=== PATIENT | female | born 1940 | race Caucasian/White ===

== ENCOUNTER 2019-10-14 21:50 | Emergency (ER) | payer MEDICARE, BC ==
[~2019-10-14 21:50] MED LIST: ALLEGRA60 M1 PO; ARIMIDEX1 MG PO; ASCRIPTIN325 MG OR; BACTROBAN2 % EX; COUMADIN2.5 MG PO; COUMADIN5 MG PO; DIAZEPAM5 M1 PO; FAMVIR500 MG PO; FLEXERIL PO; LASIX 20 MG TAB20 MG PO; LORTAB 5/3255 MG PO; METFORMIN500 MG PO; METO100T50 PO; METO25TAB PO; METO50TA52 PO; NEXIUM20 M1 OR; PROZAC20 MG OR; ROCEPHIN 1 GM1 GM IM; SOTALOL HCL80 MG PO; VITAMIN C500 M4 PO; VITAMIN D1000 UNIT PO; WARFARIN2.5 MG PO; WARFARIN5 MG PO
[2019-10-14] MEDS ORDERED: LANTUS100 UNIT/M SC (22:42)
[2019-10-14] MEDS ORDERED: B-12500 MCG SL (22:43)
[2019-10-14] MEDS ORDERED: HM IRON65 MG PO (22:45)
[2019-10-14] MEDS ORDERED: FOLIC ACID1 MG PO (22:46)
[2019-10-14] MEDS ORDERED: MUCINEX1200 MG PO (22:46)
[2019-10-14] MEDS ORDERED: PRESERVISION PO (22:47)
[2019-10-14 22:49] LABS: IMMATURE GRANULOCYTES 0.8 % (0.0-5.0); MEAN CORPUSCULAR HGB 31.9 pG CALC (26.0-32.0); MEAN CORPUSCULAR HGB CONC 30.8 g/dL CAL (32.0-36.0); NEUT# 6.75 thou/uL (2.00-7.15); RED BLOOD COUNT 2.57 mill/uL (4.20-5.60); RED CELL DISTRI WIDTH 21.2 % (11.5-15.5)
[2019-10-14 22:59] LABS: HEMATOCRIT 26.6 % (37.0-47.0); HEMOGLOBIN 8.2 g/dl (12.0-16.0); MEAN CELL VOLUME 103.5 fL CALC (80.0-100.0)
[2019-10-14 23:01] LABS: ALKALINE PHOSPHATASE 76 u/l (38-126); BUN 24 mg/dL (8-23); BUN/CREATININE RATIO 23 (12-20 (CALC)); CARBON DIOXIDE 26 mmol/l (22-30); CHLORIDE 95 mmol/l (95-108); GFR 54 ML/MIN (>=60 (CALC)); GFR FOR AFR.AMER. > 60 ML/MIN (>=60 (CALC)); SGOT/AST 35 u/l (9-36)
[2019-10-14 23:07] LABS: INTERNATIONAL NORMALIZED RATIO 3.3 RATIO (0.7-1.3)
[2019-10-14 23:13] LABS: MYOGLOBIN 41 ng/mL (0 - 62)
[2019-10-14 23:21] LABS: ALBUMIN 3.5 g/dL (3.2-5.0); ANION GAP 13 (6-22 (CALC)); POTASSIUM 4.8 mmol/l (3.5-5.1); SODIUM 129 mmol/l (137-146); TOTAL PROTEIN 6.4 g/dL (6.3-8.2)
[2019-10-15 00:42] VITALS: BP 138/76
[2019-10-15 01:22] LABS: URINE BILIRUBIN - DIPSTICK NEGATIVE (NEGATIVE); URINE BLOOD DIPSTICK NEGATIVE (NEGATIVE); URINE COLOR YELLOW; URINE GLUCOSE - DIPSTICK NEGATIVE (NEGATIVE); URINE KETONE NEGATIVE (NEGATIVE); URINE LEUK ESTERASE TRACE (NEGATIVE); URINE NITRITE - DIPSTICK NEGATIVE (Negative); URINE PROTEIN - DIPSTICK NEGATIVE (NEG-TRACE); URINE SPECIFIC GRAVITY 1.015; URINE UROBILINOGEN - DIPSTICK 0.2 E.U./dL (0.2)
--- NOTE | 2019-10-17 11:20 | NUR ---
Notified patient of Covid results (Negative). Patient verbalized understanding.
== END 2019-10-15 01:00 | disposition left against medical advice (07) ==
LOC: ED 21:50 → ED-I 23:45 → ED 10-15 01:00
PROVIDERS: Emergency Medicine
DX: R06.00 Dyspnea, unspecified (principal); C79.51 Secondary malignant neoplasm of bone; J90 Pleural effusion, not elsewhere classified; I31.3 Pericardial effusion (noninflammatory); R18.8 Other ascites; I50.9 Heart failure, unspecified; D64.9 Anemia, unspecified; E87.1 Hypo-osmolality and hyponatremia; M79.89 Other specified soft tissue disorders; Z86.718 Personal history of other venous thrombosis and embolism; Z79.01 Long term (current) use of anticoagulants; Z95.0 Presence of cardiac pacemaker; Z85.3 Personal history of malignant neoplasm of breast; Z91.19 Patient's noncompliance with other medical treatment and regimen; Z20.828 Contact with and (suspected) exposure to other viral communicable diseases